=== PATIENT | male | born 1925 | race Caucasian/White ===

== ENCOUNTER → 2016-08-16 | Outpatient (CLI) | payer MEDICARE ==
[~2016-08-16] MED LIST: ASPIRIN325 MG PO; CIPRO500 MG PO; COMPAZINE10 MG PO; COUMADIN ** IA5 MG PO; DECADRON4 MG PO; FLOMAX0.4 MG PO; MYCOSTATIN CREA30 GM; NORCO 5-325 MG1 TAB PO; PRESERVISION L1 EACH PO; REFRESH CLASSI1 EACH OPHTH; TYLENOL EXTRA500 MG PO; ZESTORETIC 20/21 TAB PO; [UNRECOGNIZED DRUG - OTHER] OPHTH
== END | disposition disaster alternative care site (69) ==
LOC: GRAD 10:20
DX: C67.9 Malignant neoplasm of bladder, unspecified (principal)